=== PATIENT | female | born 1980 | race African-American/Black ===

== ENCOUNTER 2017-09-15 05:07 | Emergency (ER) | payer SELFPAY ==
[~2017-09-15] VITALS: Ht 160 cm; Wt 85.0 kg
[~2017-09-15 05:07] MED LIST: CELE20TA PO; CLON.2 PO; LORT5TAB PO; NAPR500 PO; SERO400T PO; SULF-154 PO; XANA1TAB6 PO
[2017-09-15 05:10] VITALS: BP 162/95; PULSE 85; RESP 15; TEMP 98.2; O2SAT 97
[2017-09-15] MEDS ORDERED: XANA1TAB2 PO (05:31)
[2017-09-15] MEDS ORDERED: CLON0.2T PO (05:31)
[2017-09-15] MEDS ORDERED: SERO400T PO (05:31)
[2017-09-15] MEDS ORDERED: METF1000 PO (05:31)
[2017-09-15] MEDS ORDERED: ZOLO50TA PO (05:31)
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
[2017-09-15] MEDS ORDERED: KETOROLAC TROMETHAMINE 60 MG/2 ML (IM) VIAL IM ONE (05:45)
--- NOTE | 2017-09-15 06:17 | RADRPT ---
EXAM DATE/TIME: 09/15/2017 05:59 [place] COMPARISON: No previous studies available for comparison. INDICATIONS : Pain due to trauma. MEDICAL HISTORY : Diabetes mellitus type II. Hypertension SURGICAL HISTORY : None. ENCOUNTER: Initial ACUITY: 2 days PAIN SCORE: 9/10 LOCATION: lumbar FINDINGS: 3 views lumbar spine. Bone alignment within normal limits. No evidence of fracture. Vertebral body h eight and shape within normal limits. Transitional vertebral body is seen at the lumbosacral junction . CONCLUSION: No evidence of fracture. Gumaro Muñiz MD on September 15, 2017 at 6:14 Board Certified Radiologist. This report was verified electronically.
[2017-09-15 07:08] LABS: BACTERIA, URINE FEW /hpf; BILIRUBIN, URINE NEG (NEG); BLOOD, URINE NEG (NEG); GLUCOSE,URINE 1000 mg/dL (NEG); KETONE, URINE NEG (NEG); MUCUS URINE FEW /lpf (OCC); NITRITE,URINE NEG (NEG); PH, URINE 6.5 (5.0-8.5); SQUAMOUS EPITHELIAL CELL URINE 16 /hpf (0-5); URINE COLOR LIGHT-YELLOW (YELLW/STRAW); URINE LEUKOCYTE ESTERASE SMALL (NEG)
== END 2017-09-15 07:24 | disposition home or self-care (01) ==
LOC: NEPC 05:07
DX: Z04.71 Encounter for examination and observation following alleged adult physical abuse (principal); T14.8XXD Other injury of unspecified body region, subsequent encounter; M54.5 Low back pain; I10 Essential (primary) hypertension; E11.9 Type 2 diabetes mellitus without complications; F41.9 Anxiety disorder, unspecified; F17.200 Nicotine dependence, unspecified, uncomplicated; Z88.0 Allergy status to penicillin; Z88.6 Allergy status to analgesic agent
CPT/HCPCS: 72100; 81001; 84703; 96372; 99284; J1885

== ENCOUNTER 2018-02-27 09:32 | Emergency (ER) | payer SELFPAY ==
[~2018-02-27] VITALS: Ht 160 cm; Wt 85.0 kg
[~2018-02-27 09:32] MED LIST changes: -CELE20TA PO; -CLON.2 PO; +CLON0.2T PO; -LORT5TAB PO; +METF1000 PO; -NAPR500 PO; -SULF-154 PO; +XANA1TAB2 PO; -XANA1TAB6 PO; +ZOLO50TA PO
[2018-02-27 09:35] VITALS: BP 190/96; PULSE 88; RESP 20; TEMP 98.2; O2SAT 99
[2018-02-27] MEDS ORDERED: SERT-129 PO (09:44)
--- NOTE | 2018-02-27 10:18 | PD ---
HPI Chief Complaint: Fall Time Seen by Provider: 09:41 Travel History International Travel<30 days: No Contact w/Intl Traveler<30days: No Traveled to known affect area: No History of Present Illness HPI Is a 37-year-old woman presents to the emergency department complaining of pain in her right ribs after a fall. States she tripped and fell last night has pain on her right side. Worse with deep breathing. Worse with movement. Also a little bit of pain in her back. Denies hitting her head. She took Lortab prior to arrival which seemed helped some but she still very painful. Is brought in by EMS. Denies being intentionally injured. History Past Medical History Narrative Medical Hypertension Tetanus Vaccination: < 5 Years Influenza Vaccination: No LMP: 02/25/18 : 0 Para: 0 Past Surgical History Surgical History: No Previous Surgery Social History Alcohol Use: No Tobacco Use: Yes (1/2 PACK A DAY) Allergies-Medications (Allergen,Severity, Reaction): Coded Allergies: penicillin G (Unverified Allergy, Severe, SWELLING, 02/27/18) aspirin (Unverified Allergy, Unknown, UNKNOWN REACTION, 02/27/18) Reported Meds & Prescriptions Reported Meds & Active Scripts Active Reported Sertraline (Sertraline HCl) 100 Mg Tab 400 Mg PO DAILY Zoloft (Sertraline HCl) 50 Mg Tab 50 Mg PO DAILY Seroquel (Quetiapine Fumarate) 400 Mg Tab 400 Mg PO HS Metformin (Metformin HCl) 1,000 Mg Tab 1,000 Mg PO BIDPC Review of Systems Except as stated in HPI: all other systems reviewed are Neg Physical Exam Narrative GENERAL: 29-year-old woman, joking, holding her right ribs and right costal margin. SKIN: Focused skin assessment warm/dry. HEAD: Atraumatic. Normocephalic. EYES: Pupils equal and round. No scleral icterus. No injection or drainage. ENT: No nasal bleeding or discharge. Mucous membranes pink and moist. NECK: Trachea midline. No JVD. CARDIOVASCULAR: Regular rate and rhythm. No murmur appreciated. RESPIRATORY: No accessory muscle use. Clear to auscultation. Breath sounds equal bilaterally. GASTROINTESTINAL: Normal contour and appearance. Minimal right costal margin tenderness. Minimal diffuse tenderness in the abdomen. MUSCULOSKELETAL: No obvious deformities. I do not see any definite ecchymosis bruising or swelling. She is tender along the right ribs and right costal margin. NEUROLOGICAL: Awake and alert. No obvious cranial nerve deficits. Motor grossly within normal limits. Normal speech. PSYCHIATRIC: Laughing and joking. Data Data Last Documented VS Vital Signs Date Time Temp Pulse Resp B/P (MAP) Pulse Ox O2 Delivery O2 Flow Rate FiO2 02/27/18 10:40 84 18 184/96 (125) 98 Room Air 02/27/18 09:35 98.2 Orders Orders Ribs, Uni (W/Exp Cxr-Min 3vw) (02/27/18 ) Acetamin-Hydrocod 325-5 Mg ([place] 5-325 (02/27/18 10:45) MDM Medical Decision Making Medical Screen Exam Complete: Yes Emergency Medical Condition: Yes Differential Diagnosis Fall, contusion, rib fracture, other Narrative Course Medical decision making 29-year-old woman tripped and fall of right-sided rib pain. She has minimal abdominal tenderness but only she is any significant check right-sided rib series. Toradol for pain control. Likely discharge. FINAL: Patient with negative rib series. Likely contusions. Also concerned about a area of tender induration that she has in her axilla cells but it does appear to be inflammation or cellulitis. She has had trouble with that before. Will treat with antibiotics. Diagnosis Primary Impression: Rib pain on right side Patient Instructions: General Instructions Additional Instructions: Take [id number] acetaminophen or ibuprofen as needed for pain. Take Keflex as prescribed. Return to the emergency department for any new or worsening symptoms. Med/Other Pt SpecificInfo: Prescription(s) given, No Change to Meds Scripts Sulfamethoxazole-Trimethoprim (Bactrim DS) 800-160 Mg Tab 1 TAB PO BID for Infection, #14 TAB 0 Refills Prov: Edgar Bell MD 02/27/18 Disposition: 01 DISCHARGE HOME Condition: Stable Edgar Bell MD February 27, 2018 10:18
[2018-02-27 10:40] VITALS: BP 184/96; PULSE 84; RESP 18; O2SAT 98
[2018-02-27] MEDS ORDERED: ACETAMINOPHEN/HYDROcodone 325 MG/5 MG TAB PO ONE (10:45)
--- NOTE | 2018-02-27 10:50 | RADRPT ---
EXAM DATE: 02/27/2018 10:31 AM EDT AGE/SEX: 37 years / Female INDICATIONS: Fell this morning, pain right anterior ribs behind right breast, short of breath CLINICAL DATA: This is the patient's initial encounter. Patient reports that signs and symptoms have been present for 1 day and indicates a pain score of 10/10. MEDICAL/SURGICAL HISTORY: . bipolar None. COMPARISON: No prior [facility] exams available for comparison. FINDINGS: There is no evidence of displaced fracture. No destructive lesions or areas of periosteal thickening are seen. Expiratory view of the chest is negative for pneumothorax. The mediastinal structures ar e midline. CONCLUSION: No right-sided rib fracture identified. Electronically signed by: Master Menard MD 02/27/2018 10:49 AM EDT
[2018-02-27] MEDS ORDERED: BACT800T5 PO ×2 (11:54→12:06)
== END 2018-02-27 12:35 | disposition home or self-care (01) ==
LOC: NEPC 09:32
DX: R07.81 Pleurodynia (principal); F17.200 Nicotine dependence, unspecified, uncomplicated
CPT/HCPCS: 71101; 99283